=== PATIENT | male | born 1995 | race Caucasian/White ===

== ENCOUNTER 2021-04-10 19:40 | Emergency (ER) | payer OTHER ==
[~2021-04-10] VITALS: Ht 175.3 cm; Wt 72.6 kg
[2021-04-10 19:41] VITALS: BP 136/83
== END 2021-04-10 19:48 | disposition home or self-care (01) ==
LOC: M.ERS 19:40
DX: F10.129 Alcohol abuse with intoxication, unspecified (principal); F12.90 Cannabis use, unspecified, uncomplicated; Y90.9 Presence of alcohol in blood, level not specified